=== PATIENT | male | born 1975 | race Caucasian/White ===

== ENCOUNTER 2020-01-17 15:46 | Emergency (ER) | payer OTHER ==
[~2020-01-17] VITALS: Ht 177.8 cm; Wt 90.7 kg
[2020-01-17] MEDS ORDERED: TADALAFIL10 MG PO (16:11)
[2020-01-17] MEDS ORDERED: Prozac20 MG PO (16:11)
[2020-01-17] MEDS ORDERED: IBUP800 PO (17:16)
[2020-01-17] MEDS ORDERED: Norco 5-325 Ta1 EACH PO (17:16)
== END 2020-01-17 17:31 | disposition home or self-care (01) ==
LOC: ER 15:46
DX: M54.6 Pain in thoracic spine (principal); X50.0XXA Overexertion from strenuous movement or load, initial encounter
CPT/HCPCS: 96372; 99283-25; J1885; J2270

== ENCOUNTER 2020-08-20 20:29 | Emergency (ER) | payer OTHER ==
[~2020-08-20] VITALS: Ht 177.8 cm; Wt 95.2 kg
[~2020-08-20 20:29] MED LIST: IBUP800 PO; Norco 5-325 Ta1 EACH PO; Prozac20 MG PO; TADALAFIL10 MG PO
== END 2020-08-20 23:25 | disposition home or self-care (01) ==
LOC: ER 20:29
DX: R51.9 Headache, unspecified (principal); M54.2 Cervicalgia; G89.29 Other chronic pain; Z79.899 Other long term (current) drug therapy
CPT/HCPCS: 70450; 96361; 96374; 96375; 99284-25; J1200; J1885; J2765; J7030

== ENCOUNTER 2020-09-22 22:00 | Emergency (ER) | payer OTHER ==
[~2020-09-22] VITALS: Ht 177.8 cm; Wt 97.5 kg
[2020-09-22 23:26] LABS: BASOPHILS ABSOLUTE AUTO 0.03 K/mm3 (0.00-0.23); BASOPHILS PERCENT AUTO 1 % (0-2); EOSINOPHILS ABSOLUTE AUTO 0.15 K/mm3 (0.00-0.68); EOSINOPHILS PERCENT AUTO 3 % (0-6); Hematocrit 42.2 % (37.0-53.0); Hemoglobin 14.2 g/dL (13.5-17.5); IMMATURE GRAN ABSOLUTE AUTO 0.04 K/mm3 (0.00-0.10); IMMATURE GRAN PERCENT AUTO 1 % (0-1); LYMPHOCYTES ABSOLUTE AUTO 2.11 K/mm3 (0.84-5.20); LYMPHOCYTES PERCENT AUTO 36 % (21-46); MONOCYTES ABSOLUTE AUTO 0.43 K/mm3 (0.16-1.47); MONOCYTES PERCENT AUTO 7 % (4-13); Mean Corpuscular HGB 30.1 pg (26.0-34.0); Mean Corpuscular HGB Conc 33.6 g/dL (31.5-36.5); Mean Corpuscular Volume 90 fL (80-100); NEUTROPHILS ABSOLUTE AUTO 3.11 K/mm3 (1.96-9.15); NEUTROPHILS PERCENT AUTO 53 % (41-73); Platelet Count 124 K/mm3 (150-400); RDW Coefficient Variation 13.6 % (11.7-14.2); RDW Standard Deviation 44.1 fL (35.1-46.3); Red Blood Cell Count 4.71 M/mm3 (4.30-5.90); White Blood Cell Count 5.87 K/mm3 (4.00-11.30)
[2020-09-22 23:42] LABS: Alanine Aminotransfer (ALT/SGP 72 U/L (12-78); Albumin, Blood 4.1 g/dL (3.4-5.0); Albumin/Globulin Ratio 1.1 (0.8-1.8); Alk Phos 81 U/L (50-136); Anion Gap 5 mmol/L (6-16); Aspartate Aminotrans (AST/SGOT 34 U/L (12-37); Bilirubin, Total 0.7 mg/dL (0.1-1.0); Blood Urea Nitrogen 10 mg/dL (8-24); Bun/Creatinine Ratio 11.2 (12.0-20.0); CO2, Blood 28 mmol/L (21-32); Calcium, Blood 8.8 mg/dL (8.5-10.1); Chloride, Blood 108 mmol/L (98-108); Creatinine, Blood 0.89 mg/dL (0.60-1.20); Globulin, Blood 3.8 g/dL (2.2-4.0); Glomerular Filtration Rate >60 (60-); Glucose, Blood 132 mg/dL (70-99); Potassium, Blood 3.9 mmol/L (3.5-5.5); Sodium, Blood 141 mmol/L (136-145); Total Protein, Blood 7.9 g/dL (6.4-8.2)
[2020-09-23 02:24] LABS: Source, Urine Peds U Bag
[2020-09-23 02:35] LABS: Bilirubin, Urine Neg (Neg); Blood, Urine Neg (Neg); Glucose Qualitative, Urine Neg (Neg); Ketones, Urine Neg (Neg); Leukocyte Esterase, Urine Neg (Neg); Nitrite, Urine Neg (Neg); Protein, Urine 1+ (Neg); Specific Gravity, Urine 1.025 (1.003-1.022); Urobilinogen, Urine NORM (Normal)
[2020-09-23 02:39] LABS: Appearance, Urine Clear (Clear); Color, Urine Yellow (P-Yellow)
[2020-09-23] MEDS ORDERED: ALPR1 PO (02:39)
[2020-09-23] MEDS ORDERED: HYDR25SUP PR (02:45)
[2020-09-23] MEDS ORDERED: Seroquel Xr50 MG PO (02:45)
[2020-09-23] MEDS ORDERED: FLUTICASONE PRO16 GM (02:45)
[2020-09-23] MEDS ORDERED: SILDENAFIL CIT100 MG PO (02:47)
[2020-09-23] MEDS ORDERED: Cyclobenzaprine5 MG PO (02:57)
== END 2020-09-23 03:20 | disposition home or self-care (01) ==
LOC: ER 22:00
PROVIDERS: Physician Assistant
DX: S39.011A Strain of muscle, fascia and tendon of abdomen, initial encounter (principal); F41.9 Anxiety disorder, unspecified; Z79.899 Other long term (current) drug therapy; X50.1XXA Overexertion from prolonged static or awkward postures, initial encounter
CPT/HCPCS: 36415; 71260; 80053; 83690; 85025; 85379; 93005; 93010; 96374-59; 99284-25; A9270; A9270-GY; J1885; Q9967

== ENCOUNTER 2020-10-03 07:27 | Emergency (ER) | payer OTHER ==
[~2020-10-03] VITALS: Ht 177.8 cm; Wt 97.5 kg
[~2020-10-03 07:27] MED LIST changes: +ALPR1 PO; +Cyclobenzaprine5 MG PO; +FLUTICASONE PRO16 GM; +HYDR25SUP PR; +SILDENAFIL CIT100 MG PO; +Seroquel Xr50 MG PO
[2020-10-03 08:12] LABS: BASOPHILS ABSOLUTE AUTO 0.04 K/mm3 (0.00-0.23); BASOPHILS PERCENT AUTO 1 % (0-2); EOSINOPHILS ABSOLUTE AUTO 0.15 K/mm3 (0.00-0.68); EOSINOPHILS PERCENT AUTO 3 % (0-6); Hematocrit 42.7 % (37.0-53.0); Hemoglobin 14.4 g/dL (13.5-17.5); IMMATURE GRAN ABSOLUTE AUTO 0.05 K/mm3 (0.00-0.10); IMMATURE GRAN PERCENT AUTO 1 % (0-1); LYMPHOCYTES ABSOLUTE AUTO 2.38 K/mm3 (0.84-5.20); LYMPHOCYTES PERCENT AUTO 40 % (21-46); MONOCYTES ABSOLUTE AUTO 0.48 K/mm3 (0.16-1.47); MONOCYTES PERCENT AUTO 8 % (4-13); Mean Corpuscular HGB 30.1 pg (26.0-34.0); Mean Corpuscular HGB Conc 33.7 g/dL (31.5-36.5); Mean Corpuscular Volume 89 fL (80-100); Mean Platelet Volume 10.7 fL (9.1-12.4); NEUTROPHILS ABSOLUTE AUTO 2.83 K/mm3 (1.96-9.15); NEUTROPHILS PERCENT AUTO 48 % (41-73); Platelet Count 112 K/mm3 (150-400); RDW Standard Deviation 45.3 fL (35.1-46.3); Red Blood Cell Count 4.79 M/mm3 (4.30-5.90); White Blood Cell Count 5.93 K/mm3 (4.00-11.30)
[2020-10-03 08:31] LABS: Alanine Aminotransfer (ALT/SGP 73 U/L (12-78); Albumin, Blood 4.2 g/dL (3.4-5.0); Albumin/Globulin Ratio 1.2 (0.8-1.8); Alk Phos 77 U/L (50-136); Anion Gap 8 mmol/L (6-16); Aspartate Aminotrans (AST/SGOT 37 U/L (12-37); Bilirubin, Total 0.9 mg/dL (0.1-1.0); Blood Urea Nitrogen 11 mg/dL (8-24); Bun/Creatinine Ratio 11.5 (12.0-20.0); CO2, Blood 23 mmol/L (21-32); Calcium, Blood 8.6 mg/dL (8.5-10.1); Chloride, Blood 108 mmol/L (98-108); Creatinine, Blood 0.96 mg/dL (0.60-1.20); Globulin, Blood 3.6 g/dL (2.2-4.0); Glomerular Filtration Rate >60 (60-); Glucose, Blood 95 mg/dL (70-99); Potassium, Blood 3.8 mmol/L (3.5-5.5); Sodium, Blood 139 mmol/L (136-145); Total Protein, Blood 7.8 g/dL (6.4-8.2); Troponin I <0.015 ng/mL (0.000-0.040)
== END 2020-10-03 10:50 | disposition home or self-care (01) ==
LOC: ER 07:27
PROVIDERS: Emergency Medicine
DX: R07.89 Other chest pain (principal); R06.02 Shortness of breath; F41.9 Anxiety disorder, unspecified; Z88.0 Allergy status to penicillin; Z79.899 Other long term (current) drug therapy
CPT/HCPCS: 36415; 71046; 80053; 83690; 84484; 85025; 93005; 93010; 96374; 99285-25; J1885

== ENCOUNTER 2021-07-20 21:14 | Emergency (ER) | payer OTHER ==
[~2021-07-20] VITALS: Ht 177.8 cm; Wt 97.5 kg
== END 2021-07-20 23:15 | disposition home or self-care (01) ==
LOC: ER 21:14
DX: S46.912A Strain of unspecified muscle, fascia and tendon at shoulder and upper arm level, left arm, initial encounter (principal); S43.402A Unspecified sprain of left shoulder joint, initial encounter; S50.02XA Contusion of left elbow, initial encounter; Z88.0 Allergy status to penicillin; Z79.899 Other long term (current) drug therapy; V00.131A Fall from skateboard, initial encounter
CPT/HCPCS: 73030; 73080; 96372; 99283-25; J1885

== ENCOUNTER 2022-02-06 11:20 | Observation (INO) | payer OTHER ==
[~2022-02-06] VITALS: Ht 177.8 cm; Wt 97.3 kg
[2022-02-06 11:37] LABS: BASOPHILS ABSOLUTE AUTO 0.02 K/mm3 (0.00-0.23); BASOPHILS PERCENT AUTO 0 % (0-2); EOSINOPHILS ABSOLUTE AUTO 0.12 K/mm3 (0.00-0.68); EOSINOPHILS PERCENT AUTO 2 % (0-6); Hematocrit 43.2 % (37.0-53.0); Hemoglobin 14.7 g/dL (13.5-17.5); IMMATURE GRAN ABSOLUTE AUTO 0.02 K/mm3 (0.00-0.10); IMMATURE GRAN PERCENT AUTO 0 % (0-1); LYMPHOCYTES ABSOLUTE AUTO 2.07 K/mm3 (0.84-5.20); LYMPHOCYTES PERCENT AUTO 33 % (21-46); MONOCYTES ABSOLUTE AUTO 0.46 K/mm3 (0.16-1.47); MONOCYTES PERCENT AUTO 7 % (4-13); Mean Corpuscular Volume 91 fL (80-100); Mean Platelet Volume 11.1 fL (9.1-12.4); NEUTROPHILS ABSOLUTE AUTO 3.65 K/mm3 (1.96-9.15); NEUTROPHILS PERCENT AUTO 58 % (41-73); Platelet Count 123 K/mm3 (150-400); RDW Coefficient Variation 14.6 % (11.7-14.2); RDW Standard Deviation 47.8 fL (35.1-46.3); Red Blood Cell Count 4.74 M/mm3 (4.30-5.90); White Blood Cell Count 6.34 K/mm3 (4.00-11.30)
[2022-02-06 12:38] LABS: Alanine Aminotransfer (ALT/SGP 53 U/L (12-78); Albumin/Globulin Ratio 1.1 (0.8-1.8); Alk Phos 78 U/L (50-136); Anion Gap 4 mmol/L (6-16); Aspartate Aminotrans (AST/SGOT 27 U/L (12-37); Bilirubin, Total 0.8 mg/dL (0.1-1.0); Blood Urea Nitrogen 12 mg/dL (8-24); Bun/Creatinine Ratio 14.5 (12.0-20.0); CO2, Blood 27 mmol/L (21-32); Calcium, Blood 8.6 mg/dL (8.5-10.1); Chloride, Blood 108 mmol/L (98-108); Creatinine, Blood 0.83 mg/dL (0.60-1.20); Globulin, Blood 3.6 g/dL (2.2-4.0); Glomerular Filtration Rate >60 (60-); Glucose, Blood 99 mg/dL (70-99); Potassium, Blood 4.1 mmol/L (3.5-5.5); Sodium, Blood 139 mmol/L (136-145); Total Protein, Blood 7.6 g/dL (6.4-8.2)
[2022-02-06] MEDS ORDERED: Prinivil10 MG PO (15:42)
--- NOTE | 2022-02-06 18:12 | NUR ---
SHIFT SUMMARY PATIENT ADMITTED FROM ER FOR CHEST PAIN. PATIENT HAS NOT C/O CHEST PAIN STATING THE NITRO RELIEVED HIS PAIN. PATIENT DID C/O HEADACHE AND MEDICATED PER DEC. PLAN FOR STRESS TEST TOMORROW 829. PATIENT INDEPENDENT IN ROOM. ON RA AND PATIENT STATES HE USES CPAP AT NIGHT. VSS. WILL CONTINUE TO MONITOR.
--- NOTE | 2022-02-07 04:55 | NUR ---
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 HE HAS BEEN NPO SINCE MIDNIGHT FOR STRESS TEST THIS MORNING. PT REPORTS THE HEADACHE HE HAD DURING DAY SHIFT HAD RESOLVED. NO EPISODES OF CHEST PAIN. PT HAS BEEN INDEPENDENT IN THE ROOM. NO EVENTS REPORTED ON TELEMETRY. PT ALERT AND ORIENTED AND COOPERATIVE WITH CARE.
[2022-02-07 05:40] LABS: CHOL/HDL RATIO 5.3; Cholesterol 171 mg/dL (50-200); HDL Cholesterol 32 mg/dL (>39); LDL/HDL RATIO 3.1; Low Density Lipoprotein Chol 100 mg/dL (0-110); Triglycerides 195 mg/dL (30-160); Very Low Density Lipoprot Chol 39 mg/dL (6-32)
[2022-02-07] MEDS ORDERED: ASPI81CH PO (16:59)
--- NOTE | 2022-02-07 17:23 | NUR ---
RESULTS OF STRESS TEST APPEAR TO BE GOOD. AWAITING THE FINAL GO AHEAD FOR DISCHARGE. PATIENT WILL BE SENT HOME ON [facility] THERAPY WITH EDU PROVIDED AFTER WE HAVE APPROVAL TO [facility].
--- NOTE | 2022-02-07 18:03 | NUR ---
PATIENT HAS BEEN DISCHARGED 1800, ACCOMPANIED BY . HE WAS PROVIDED WITH DISCHARGE EDU ON [facility], AND GIVEN PAPERWORK WHICH HE SIGNED. HE HAS NO QUESTIONS AND WILL FOLLOW UP WIT HIS PRIMARY IN ONE WEEK. IV WAS REMOVED AND HE ATE DINNER BEFORE LEAVING THE FACILTIY.
== END 2022-02-07 18:05 | disposition home or self-care (01) ==
LOC: ER 11:20 → MEDS 13:41
PROVIDERS: Emergency Medicine; Nurse Practitioner Acute Care; ADMIT Internal Medicine
DX: R07.89 Other chest pain (principal); I10 Essential (primary) hypertension; G47.33 Obstructive sleep apnea (adult) (pediatric); E78.5 Hyperlipidemia, unspecified; F41.9 Anxiety disorder, unspecified; Z87.891 Personal history of nicotine dependence; Z88.1 Allergy status to other antibiotic agents
CPT/HCPCS: 36415; 71045; 80053; 80061; 84484; 85025; 93005; 93010; 93017; 94660; 96374; 99285-25; A9270; G0378; J2060

== ENCOUNTER 2022-06-08 20:09 | Emergency (ER) | payer OTHER ==
[~2022-06-08] VITALS: Ht 177.8 cm; Wt 97.5 kg
[~2022-06-08 20:09] MED LIST changes: +ASPI81CH PO; +Prinivil10 MG PO
[2022-06-08 21:17] LABS: BASOPHILS ABSOLUTE AUTO 0.02 K/mm3 (0.00-0.23); BASOPHILS PERCENT AUTO 0 % (0-2); EOSINOPHILS ABSOLUTE AUTO 0.12 K/mm3 (0.00-0.68); EOSINOPHILS PERCENT AUTO 2 % (0-6); Hematocrit 39.9 % (37.0-53.0); Hemoglobin 13.8 g/dL (13.5-17.5); IMMATURE GRAN ABSOLUTE AUTO 0.02 K/mm3 (0.00-0.10); IMMATURE GRAN PERCENT AUTO 0 % (0-1); LYMPHOCYTES ABSOLUTE AUTO 2.28 K/mm3 (0.84-5.20); LYMPHOCYTES PERCENT AUTO 43 % (21-46); MONOCYTES PERCENT AUTO 6 % (4-13); Mean Corpuscular HGB 31.7 pg (26.0-34.0); Mean Corpuscular HGB Conc 34.6 g/dL (31.5-36.5); Mean Corpuscular Volume 92 fL (80-100); Mean Platelet Volume 10.6 fL (9.1-12.4); NEUTROPHILS ABSOLUTE AUTO 2.56 K/mm3 (1.96-9.15); NEUTROPHILS PERCENT AUTO 48 % (41-73); Platelet Count 121 K/mm3 (150-400); RDW Coefficient Variation 14.5 % (11.7-14.2); RDW Standard Deviation 47.9 fL (35.1-46.3); Red Blood Cell Count 4.36 M/mm3 (4.30-5.90)
[2022-06-08 21:32] LABS: Albumin, Blood 4.2 g/dL (3.4-5.0); Albumin/Globulin Ratio 1.1 (0.8-1.8); Bilirubin, Total 0.9 mg/dL (0.1-1.0); Bun/Creatinine Ratio 16.2 (12.0-20.0); Calcium, Blood 9.1 mg/dL (8.5-10.1); Creatinine, Blood 0.8 mg/dL (0.60-1.20); Globulin, Blood 3.7 g/dL (2.2-4.0); Potassium, Blood 4.2 mmol/L (3.5-5.5); Total Protein, Blood 7.9 g/dL (6.4-8.2)
== END 2022-06-08 23:13 | disposition home or self-care (01) ==
LOC: ER 20:09
PROVIDERS: Student in an Organized Health Care Education/Training Program
DX: R51.9 Headache, unspecified (principal); I10 Essential (primary) hypertension; Z79.82 Long term (current) use of aspirin; Z79.899 Other long term (current) drug therapy; Z88.0 Allergy status to penicillin
CPT/HCPCS: 70450; 80053; 85025; A9270; J0780; J1885

== ENCOUNTER 2023-02-08 06:04 | Day surgery (SDC) | payer OTHER ==
[~2023-02-08] VITALS: Ht 177.8 cm; Wt 94.3 kg
[2023-02-08 06:45] VITALS: BP 143/80
[2023-02-08] MEDS ORDERED: EMTRICITABINE-1 EAC5 PO (06:56)
[2023-02-08] MEDS ORDERED: METPHE5 PO (06:57)
--- NOTE | 2023-02-08 07:31 | NUR ---
02/08/23 0731 Marciano Reveles AN[address]IA PER DR. LEE
[2023-02-08 07:59] VITALS: BP 101/60
[2023-02-08 08:13] VITALS: BP 123/81
--- NOTE | 2023-02-08 08:20 | NUR ---
Discharge instructions reviewed with patient. Patient verbalizes understanding. Copy given to patient to take home. Patient States Post-Procedure ride home has been arranged. Discharged via wheelchair to private car for ride home.
== END 2023-02-08 22:58 | disposition home or self-care (01) ==
LOC: ORSCMMR 06:04 → ORD 12:00 → ORSCMMR 22:58
PROVIDERS: Surgery
PROC: 0DJD8ZZ Inspection of Lower Intestinal Tract, Via Natural or Artificial Opening Endoscopic (ICD-10-PCS; principal; 2023-02-08 07:30)
DX: K62.5 Hemorrhage of anus and rectum (principal); K64.8 Other hemorrhoids; I10 Essential (primary) hypertension; G47.33 Obstructive sleep apnea (adult) (pediatric); F41.8 Other specified anxiety disorders; Z79.899 Other long term (current) drug therapy
CPT/HCPCS: J1100; J1885; J2405; J2704; J7120

== ENCOUNTER 2025-06-28 14:12 | Emergency (ER) | payer OTHER ==
[~2025-06-28] VITALS: Ht 177.8 cm; Wt 81.7 kg
[~2025-06-28 14:12] MED LIST changes: +EMTRICITABINE-1 EAC5 PO; +METPHE5 PO
[2025-06-28 14:29] VITALS: BP 130/99
[2025-06-28] MEDS ORDERED: Lidocaine 4% 1 Patch TOP ONE (17:30)
[2025-06-28] MEDS ORDERED: Robaxin750 MG PO (17:30)
[2025-06-28] MEDS ORDERED: HYDROcodone 5-APAP 325 TAB PO ONE (17:30)
[2025-06-28] MEDS ORDERED: Ketorolac Tromethamine 15mg Vial IM ONE (17:30)
== END 2025-06-28 17:52 | disposition home or self-care (01) ==
LOC: ER 14:12
DX: M54.50 Low back pain, unspecified (principal); I10 Essential (primary) hypertension; G47.33 Obstructive sleep apnea (adult) (pediatric); Z79.899 Other long term (current) drug therapy; Z88.0 Allergy status to penicillin
CPT/HCPCS: 96372; 99282-25; A9270; J1885